=== PATIENT | male | born 1935 | race Caucasian/White ===

== ENCOUNTER 2017-03-15 09:16 | Observation (INO) | payer OTHER ==
[~2017-03-15] VITALS: Ht 157.5 cm; Wt 56.0 kg
[2017-03-15] VITALS (9 sets, daily range): BP systolic 138–204; BP diastolic 64–95; PULSE 54–89; RESP 15–21; TEMP 97.8–98.2; O2SAT 97–100
[~2017-03-15 09:16] MED LIST: ECOT81TA2 PO; METO25 PO
[2017-03-15] MEDS ORDERED: SODIUM CHLORIDE 0.9% FLUSH 10 ML FLUSH IVF PRN (09:45)
[2017-03-15 10:11] LABS: AUTOMATED NEUTROPHIL # 3.1 TH/MM3 (1.8-7.7); BASOPHIL # 0.1 TH/MM3 (0-0.2); BASOPHIL % 1.1 % (0.0-2.0); EOSINOPHIL # 0.2 TH/MM3 (0-0.4); EOSINOPHIL % 4.1 % (0.0-4.0); HEMATOCRIT 42.3 % (39.0-51.0); HEMO FLAGS DIFF FINAL; LYMPH % 16.3 % (9.0-44.0); LYMPHOCYTE # 0.7 TH/MM3 (1.0-4.8); MEAN CELL VOLUME 92.6 FL (80.0-100.0); MEAN CORPUSCULAR HEMOGLOBIN 30.3 PG (27.0-34.0); MEAN CORPUSCULAR HGB CONC 32.7 % (32.0-36.0); MONO % 10.2 % (0.0-8.0); NEUT % 68.3 % (16.0-70.0); PLATELET COUNT 138 TH/MM3 (150-450); RED BLOOD COUNT 4.56 MIL/MM3 (4.50-5.90); RED CELL DISTRIBUTION WIDTH 13.6 % (11.6-17.2); WHITE BLOOD COUNT 4.6 TH/MM3 (4.0-11.0)
--- NOTE | 2017-03-15 10:12 | RADRPT ---
EXAM DATE/TIME: 03/15/2017 09:48 [facility] COMPARISON: CHEST SINGLE AP, October 28, 2015, 15:29. INDICATIONS : Dizziness and chest pain. MEDICAL HISTORY : Hypercholesterolemia. Hypertension. Gastroesophageal reflux disease. SURGICAL HISTORY : CABG. ENCOUNTER: Initial ACUITY: 2 days PAIN SCORE: 3/10 LOCATION: Bilateral chest FINDINGS: A single view of the chest demonstrates the lungs to be symmetrically aerated without evidence of mas s, infiltrate or effusion. The cardiomediastinal contours are unremarkable. Osseous structures are intact with evidence of prior median sternotomy CABG.. CONCLUSION: No acute disease. Prior median sternotomy CABG Avery Cutler MD on March 15, 2017 at 10:10 Board Certified Radiologist. This report was verified electronically.
[2017-03-15] MEDS ORDERED: ASPI81CH CHEW (10:18)
[2017-03-15] MEDS ORDERED: METO50TA PO (10:18)
[2017-03-15 10:31] LABS: MAGNESIUM 2.4 MG/DL (1.5-2.5); POTASSIUM 5.8 MEQ/L (3.5-5.1)
--- NOTE | 2017-03-15 10:39 | PD ---
HPI . Weak and dizzy Chief Complaint: Dizziness Time Seen by Provider: 09:42 Travel History International Travel<30 days: No Contact w/Intl Traveler<30days: No Traveled to known affect area: No History of Present Illness HPI History is obtained from the patient and his . The majority of the history was from his . His symptoms started about 10 days ago when he spit up some blood. He has not spit up any more blood but has had persistent weakness and dizziness. His called the doctor at the onset of his symptoms and was instructed to bring him here for evaluation. She states that he initially refused. However, his symptoms have persisted and he finally agreed to come in today. He had the one episode of hemoptysis at the onset of his symptoms. Otherwise, there have been no modifying factors. He states that the weakness and dizziness is mild. His also reports persistent nasal congestion. That has been bothering him for months. He has used occasional Flonase with temporary relief of his symptoms. He also uses a NetiPot occasionally also with temporary relief of his symptoms. She states that the NetPot seems to help more than anything. She is concerned that the nasal congestion might be causing some of his weakness and dizziness. She reports that he has had previous surgery on his sinuses because of chronic sinusitis. PFSH Past Medical History Heart Rhythm Problems: Yes Cancer: Yes (SKIN) Cardiac Catheterization: Yes High Cholesterol: Yes Chest Pain: Yes Diminished Hearing: Yes (BIL[place]AL [place]) GERD: Yes Hypertension: Yes Immunizations Current: No Tetanus Vaccination: < 5 Years Influenza Vaccination: Yes Past Surgical History AICD: No Appendectomy: Yes Body Medical Devices: LOWER BACK INSTRUMENTATION Cardiac Surgery: No Coronary Artery Bypass Graft: Yes ( VESSELS ) Ear Surgery: No Endocrine Surgery: No Eye Surgery: No Genitourinary Surgery: No Gynecologic Surgery: No Joint Replacement: No Oral Surgery: No Social History Alcohol Use: Yes Tobacco Use: No (1975) Substance Use: No Allergies-Medications (Allergen,Severity, Reaction): Coded Allergies: No Known Allergies (Unverified , 03/15/17) Reported Meds & Prescriptions Reported Meds & Active Scripts Active Reported Aspirin 81 Mg Chew 81 Mg CHEW DAILY Metoprolol Tartrate 50 Mg Tab 50 Mg PO BID Review of Systems Except as stated in HPI: all other systems reviewed are Neg General / Constitutional: No: Fever, Chills Eyes: No: Blurred Vision HENT: Positive: Lightheadedness, Congestion, No: Vertigo Cardiovascular: No: Chest Pain or Discomfort Respiratory: No: Shortness of Breath Gastrointestinal: No: Nausea, Vomiting, Diarrhea Neurologic: Positive: Weakness, Dizziness, No: Syncope, Focal Abnormalities, Ataxia, Change in Mentation Physical Exam Narrative GENERAL: This is a very pleasant, elderly man who does not appear to be in any acute distress. SKIN: Warm and dry. HEAD: Atraumatic. Normocephalic. EYES: Pupils equal and round. Extraocular movements are intact. ENT: No nasal bleeding or discharge. Mucous membranes pink and moist. Oropharynx has no erythema. NECK: Trachea midline. Neck is supple. CARDIOVASCULAR: Regular rate and rhythm. Heart sounds are normal. RESPIRATORY: No accessory muscle use. Lungs are clear with full air movement throughout. GASTROINTESTINAL: Abdomen soft, non-tender, nondistended. MUSCULOSKELETAL: No obvious deformities. No edema. NEUROLOGICAL: Awake and alert. No obvious cranial nerve deficits. Motor grossly within normal limits. Normal speech. Normal iyoifr-iybp-xcejsl exam. PSYCHIATRIC: Appropriate mood and affect; insight and judgment normal. Data Data Last Documented VS Vital Signs Date Time Temp Pulse Resp B/P (MAP) Pulse Ox O2 Delivery O2 Flow Rate FiO2 03/15/17 10:15 63 15 156/74 (101) 100 Room Air 03/15/17 09:19 98.2 Orders Orders Electrocardiogram (03/15/17 09:42) Basic Metabolic Panel (Bmp) (03/15/17 09:42) Complete Blood Count With Diff (03/15/17 09:42) Magnesium (Mg) (03/15/17 09:42) Troponin I (03/15/17 09:42) Urinalysis - C+S If Indicated (03/15/17 09:42) Chest, Single Ap (03/15/17 09:42) Ct Brain W/O Iv Contrast(Rout) (03/15/17 09:42) Ecg Monitoring (03/15/17 09:42) Iv Access Insert/Monitor (03/15/17 09:42) Oximetry (03/15/17 09:42) Sodium Chloride 0.9% Flush (Ns Flush) (03/15/17 09:45) Orthostatic Vital Signs (03/15/17 09:42) Ct Sinuses W/O Iv Contrast (03/15/17 09:42) Sodium Polysty Sulfate Liq (Kayexalate L (03/15/17 11:00) Labs Laboratory Tests Test 03/15/17 09:55 White Blood Count 4.6 TH/MM3 Red Blood Count 4.56 MIL/MM3 Hemoglobin 13.8 GM/DL Hematocrit 42.3 % Mean Corpuscular Volume 92.6 FL Mean Corpuscular Hemoglobin 30.3 PG Mean Corpuscular Hemoglobin Concent 32.7 % Red Cell Distribution Width 13.6 % Platelet Count 138 TH/MM3 Mean Platelet Volume 9.5 FL Neutrophils (%) (Auto) 68.3 % Lymphocytes (%) (Auto) 16.3 % Monocytes (%) (Auto) 10.2 % Eosinophils (%) (Auto) 4.1 % Basophils (%) (Auto) 1.1 % Neutrophils # (Auto) 3.1 TH/MM3 Lymphocytes # (Auto) 0.7 TH/MM3 Monocytes # (Auto) 0.5 TH/MM3 Eosinophils # (Auto) 0.2 TH/MM3 Basophils # (Auto) 0.1 TH/MM3 CBC Comment DIFF FINAL Differential Comment Blood Urea Nitrogen 18 MG/DL Creatinine 1.44 MG/DL Random Glucose 175 MG/DL Calcium Level 9.0 MG/DL Magnesium Level 2.4 MG/DL Sodium Level 138 MEQ/L Potassium Level 5.8 MEQ/L Chloride Level 104 MEQ/L Carbon Dioxide Level 26.0 MEQ/L Anion Gap 8 MEQ/L Estimat Glomerular Filtration Rate 47 ML/MIN Troponin I 0.04 NG/ML MDM Medical Decision Making Medical Screen Exam Complete: Yes Emergency Medical Condition: Yes Medical Record Reviewed: Yes (past medical history is significant for hypertension, coronary artery disease status post CABG, hyperlipidemia tobacco abuse) Interpretation(s) EKG shows a normal sinus rhythm. No ST segment elevation or depression. No peaked T waves. He does have Q waves inferiorly. Differential Diagnosis Differential diagnosis of dizziness includes but is not limited to vertigo, dehydration, acute blood loss, sepsis, ACS Narrative Course This patient presents with a chief complaint of weakness and dizziness. Orthostatics have been obtained and are negative. CBC & BMP Diagram 03/15/17 09:55 Calcium Level 9.0, Magnesium Level 2.4 This patient is on no supplemental potassium. It looks like his renal function has gradually worsened. The hyperkalemia is likely secondary to renal insufficiency. I have given him a dose of Kayexalate. Diagnosis Primary Impression: Weakness Additional Impressions: Dizziness Hyperkalemia, diminished renal excretion Chronic renal disease, stage 3, moderately decreased glomerular filtration rate (GFR) between 30-59 mL/min/1.73 square meter Admitting Information Admitting Physician Requests: Observation Condition: Stable Emerita Tobias MD Mar 15, 2017 10:38
--- NOTE | 2017-03-15 10:52 | RADRPT ---
EXAM DATE/TIME: 03/15/2017 10:25 [facility] COMPARISON: CT BRAIN W/O CONTRAST, October 28, 2015, 16:25. INDICATIONS : Dizziness. RADIATION DOSE: 56.35 CTDIvol (mGy) MEDICAL HISTORY : Hypertension. SURGICAL HISTORY : Appendectomy. ENCOUNTER: Initial ACUITY: 3 months PAIN SCALE: 0/10 LOCATION: cranial TECHNIQUE: Multiple contiguous axial images were obtained of the head. Using automated exposure control and adj ustment of the mA and/or kV according to patient size, radiation dose was kept as low as reasonably a chievable to obtain optimal diagnostic quality images. DICOM format image data is available electro nically for review and comparison. FINDINGS: CEREBRUM: Ventricles and sulci are prominent consistent with age appropriate atrophy.. No evidence of midline shift, mass lesion, hemorrhage or acute infarction. No extra-axial fluid collections are seen. Decre ased density noted in white matter and periventricular consistent with microvascular ischemic demyeli nization. POSTERIOR FOSSA: The cerebellum and brainstem are intact. The 4th ventricle is midline. The cerebellopontine angle i s unremarkable. EXTRACRANIAL: The visualized portion of the orbits is intact. Extensive calcifications in the internal carotid alisha shad in the siphon and vertebral arteries at the foramen SKULL: The calvaria is intact. No evidence of skull fracture. CONCLUSION: Stable CT brain scan. Extensive vascular calcifications in the internal carotid arteries and vertebra l arteries . Atrophy and microvascular deep white matter ischemic demyelinization Avery Cutler MD on March 15, 2017 at 10:48 Board Certified Radiologist. This report was verified electronically.
[2017-03-15] MEDS ORDERED: SODIUM POLYSTYRENE SULFONATE SUSP 15 GM/60 ML CUP PO ONE (11:00)
--- NOTE | 2017-03-15 11:30 | RADRPT ---
EXAM DATE/TIME: 03/15/2017 10:27 [facility] COMPARISON: No previous studies available for comparison. INDICATIONS : Head congestion for 7 months. Evaulate for sinusitis. RADIATION DOSE: 9.29 CTDIvol (mGy) MEDICAL HISTORY : Hypertension. SURGICAL HISTORY : Appendectomy. ENCOUNTER: Initial ACUITY: 7 - 11 months PAIN SCORE: 0/10 LOCATION: facial TECHNIQUE: Volumetric scanning of the paranasal sinuses was performed. Using automated exposure control and adj ustment of the mA and/or kV according to patient size, radiation dose was kept as low as reasonably a chievable to obtain optimal diagnostic quality images. DICOM format image data is available electro nically for review and comparison. FINDINGS: There has been extensive previous sinus surgery with uncinate resection bilaterally and ethmoid bulle ctomies. There is minimal mucosal thickening in the base of the left maxillary sinus. The sinuses are otherwise clear. There is no evidence of nasal cavity mass or obstruction. The frontal sinuses are n ot pneumatized. There is minimal pneumatization of the mastoids. The middle ear cavities are clear. T here are no destructive bony changes identified. CONCLUSION: Previous sinus surgery. No significant sinus disease. Rick Hendrix MD on March 15, 2017 at 11:27 Board Certified Radiologist. This report was verified electronically.
[2017-03-15 12:29] LABS: BLOOD, URINE TRACE (NEG); GLUCOSE,URINE NEG (NEG); KETONE, URINE NEG (NEG); NITRITE,URINE NEG (NEG); PH, URINE 6.5 (5.0-8.5); URINE COLOR LIGHT-YELLOW (YELLW/STRAW)
[2017-03-15 12:44] LABS: COMMENT (UR) CULT NOT INDICATED; CULTURE IF INDICATED CULT NOT INDICATED
--- NOTE | 2017-03-15 13:08 | HHI.HP ---
[facility] Karlo Jaime MD Admission Diagnosis hyperkalemia Diagnoses: (1) Dizziness (2) Weakness (3) Acute renal failure superimposed on stage 3 chronic kidney disease (4) Hypertension (5) Hyperkalemia, diminished renal excretion Chief Complaint: Dizziness and weakness Travel History International Travel<30 Days: No Contact w/Intl Traveler <30 Da: No Traveled to Known Affected Are: No History of Present Illness 81-year-old male with a history of hypertension, presented to the ED for evaluation of worsening symptoms of dizziness and weakness 10 days. Patient reported one episode of hemoptysis about 10 days ago however resolved. Does have a history of sinus surgery and complain of nasal injection for which he'll occasionally use Flonase and NetiPot with temporary relief of his symptoms. Overstated over the past few days he has been more weak and dizzy. Denies any shortness of breath or chest pain. Abnormal labs include potassium of 5.8, however patient is not on any diuretics. Reacting of 1.44 with a GFR of 47. Patient [facility]. He has no other issues including GI bleed. Review of Systems Except as stated in HPI: all other systems reviewed are Neg Past Family Social History Past Medical History Cancer: Yes (SKIN) Cardiac Catheterization: Yes High Cholesterol: Yes Chest Pain: Yes Diminished Hearing: Yes (BILATERAL [place]) GERD: Yes Hypertension: Yes Past Surgical History Appendectomy: Yes Body Medical Devices: LOWER BACK INSTRUMENTATION Coronary Artery Bypass Graft: Yes ( VESSELS ) Reported Medications Aspirin 81 Mg Chew 81 Mg CHEW DAILY Metoprolol Tartrate 50 Mg Tab 50 Mg PO BID Allergies: Coded Allergies: No Known Allergies (Unverified , 03/15/17) Family History Positive for diabetes Social History Alcohol Use: Yes Tobacco Use: No (1976) Substance Use: No Physical Exam Vital Signs Vital Signs Date Time Temp Pulse Resp B/P (MAP) Pulse Ox O2 Delivery O2 Flow Rate FiO2 03/15/17 12:00 57 21 157/75 (102) 99 Room Air 03/15/17 11:00 54 15 156/74 (101) 98 Room Air 03/15/17 10:15 63 15 156/74 (101) 100 Room Air 03/15/17 10:15 Room Air 03/15/17 10:11 62 156/74 (101) 03/15/17 10:09 56 138/65 (89) 03/15/17 10:07 53 140/64 (89) 03/15/17 09:19 98.2 89 16 204/95 (131) 98 Physical Exam GENERAL: This is a well-nourished, well-developed patient, in no apparent distress. SKIN: No rashes, ecchymoses or lesions. Cool and dry. HEAD: Atraumatic. Normocephalic. No temporal or scalp tenderness. EYES: Pupils equal round and reactive. Extraocular motions intact. No scleral icterus. No injection or drainage. ENT: Nose without bleeding, purulent drainage or septal hematoma. Throat without erythema, tonsillar hypertrophy or exudate. Uvula midline. Airway patent. NECK: Trachea midline. No JVD or lymphadenopathy. Supple, nontender, no meningeal signs. CARDIOVASCULAR: Regular rate and rhythm without murmurs, gallops, or rubs. RESPIRATORY: Clear to auscultation. Breath sounds equal bilaterally. No wheezes , rales, or rhonchi. GASTROINTESTINAL: Abdomen soft, non-tender, nondistended. No hepato-splenomegaly , or palpable masses. No guarding. MUSCULOSKELETAL: Extremities without clubbing, cyanosis, or edema. No joint tenderness, effusion, or edema noted. No calf tenderness. Negative Homans sign bilaterally. NEUROLOGICAL: Awake and alert. Cranial nerves II through XII intact. Motor and sensory grossly within normal limits. Five out of 5 muscle strength in all muscle groups. Normal speech. Laboratory Laboratory Tests Test 03/15/17 09:55 03/15/17 12:15 White Blood Count 4.6 Red Blood Count 4.56 Hemoglobin 13.8 Hematocrit 42.3 Mean Corpuscular Volume 92.6 Mean Corpuscular Hemoglobin 30.3 Mean Corpuscular Hemoglobin Concent 32.7 Red Cell Distribution Width 13.6 Platelet Count 138 Mean Platelet Volume 9.5 Neutrophils (%) (Auto) 68.3 Lymphocytes (%) (Auto) 16.3 Monocytes (%) (Auto) 10.2 Eosinophils (%) (Auto) 4.1 Basophils (%) (Auto) 1.1 Neutrophils # (Auto) 3.1 Lymphocytes # (Auto) 0.7 Monocytes # (Auto) 0.5 Eosinophils # (Auto) 0.2 Basophils # (Auto) 0.1 CBC Comment DIFF FINAL Differential Comment Blood Urea Nitrogen 18 Creatinine 1.44 Random Glucose 175 Calcium Level 9.0 Magnesium Level 2.4 Sodium Level 138 Potassium Level 5.8 Chloride Level 104 Carbon Dioxide Level 26.0 Anion Gap 8 Estimat Glomerular Filtration Rate 47 Troponin I 0.04 Urine Color LIGHT-YELLOW Urine Turbidity CLEAR Urine pH 6.5 Urine Specific Mauldin 1.005 Urine Protein NEG Urine Glucose (UA) NEG Urine Ketones NEG Urine Occult Blood TRACE Urine Nitrite NEG Urine Bilirubin NEG Urine Urobilinogen LESS THAN 2.0 Urine Leukocyte Esterase NEG Urine RBC 1 Urine WBC LESS THAN 1 Microscopic Urinalysis Comment CULT NOT INDICATED Result Diagram: 03/15/1795403/15/17954 Imaging Last Impressions Sinuses CT 03/15/17941 Signed Impressions: Service Date/Time: Wednesday, March 15, 2017 10:27 - CONCLUSION: Previous sinus surgery. No significant sinus disease. Rick Hendrix MD Head CT 03/15/17941 Signed Impressions: Service Date/Time: Wednesday, March 15, 2017 10:25 - CONCLUSION: Stable CT brain scan. Extensive vascular calcifications in the internal carotid arteries and vertebral arteries . Atrophy and microvascular deep white matter ischemic demyelinization Avery Cutler MD Chest X-Ray 03/15/17941 Signed Impressions: Service Date/Time: Wednesday, March 15, 2017 09:48 - CONCLUSION: No acute disease. Prior median sternotomy CABG Avery Cutler MD Capkristopheri VTE Risk Assessment Caprini VTE Risk Assessment: Mod/High Risk (score >= 2) Caprini Risk Assessment Model Point Value = 1 Point Value = 2 Point Value = 3 Point Value = 5 Age 41-60 Minor surgery BMI > 25 kg/m2 Swollen legs Varicose veins or History of unexplained or recurrent spontaneous Oral contraceptives or hormone replacement Sepsis (< 1 month) Serious lung disease, including pneumonia (< 1 month) Abnormal pulmonary function Acute myocardial infarction Congestive heart failure (< 1 month) History of inflammatory bowel disease Medical patient at bed rest Age 61-74 Arthroscopic surgery Major open surgery (> 45 min) Laparoscopic surgery (> 45 min) Malignancy Confined to bed (> 72 hours) Immobilizing plaster cast Central venous access Age >= 75 History of VTE Family history of VTE Factor V Leiden Prothrombin [id number] Lupus anticoagulant Anticardiolipin antibodies Elevated serum homocysteine Heparin-induced thrombocytopenia Other congenital or acquired thrombophilia Stroke (< 1 month) Elective arthroplasty Hip, pelvis, or leg fracture Acute spinal cord injury (< 1 month) Prophylaxis Regimen Total Risk Factor Score Risk Level Prophylaxis Regimen 0-1 Low Early ambulation 2 Moderate Order ONE of the following: *Sequential Compression Device (SCD) *Heparin 5000 units SQ BID 3-4 Higher Order ONE of the following medications: *Heparin 5000 units SQ TID *Enoxaparin/Lovenox 40 mg SQ daily (WT < 150 kg, CrCl > 30 mL/min) *Enoxaparin/Lovenox 30 mg SQ daily (WT < 150 kg, CrCl > 10-29 mL/min) *Enoxaparin/Lovenox 30 mg SQ BID (WT < 150 kg, CrCl > 30 mL/min) AND/OR *Sequential Compression Device (SCD) 5 or more Highest Order ONE of the following medications: *Heparin 5000 units SQ TID (Preferred with Epidurals) *Enoxaparin/Lovenox 40 mg SQ daily (WT < 150 kg, CrCl > 30 mL/min) *Enoxaparin/Lovenox 30 mg SQ daily (WT < 150 kg, CrCl > 10-29 mL/min) *Enoxaparin/Lovenox 30 mg SQ BID (WT < 150 kg, CrCl > 30 mL/min) AND *Sequential Compression Device (SCD) Assessment and Plan Problem List: (1) Acute renal failure superimposed on stage 3 chronic kidney disease ICD Code: N17.9 - Acute kidney failure, unspecified; N18.3 - Chronic kidney disease, stage 3 (moderate) Status: Acute (2) Dizziness ICD Code: R42 - Dizziness and giddiness Status: Resolved (3) Weakness ICD Code: R53.1 - Weakness Status: Resolved (4) Hyperkalemia, diminished renal excretion ICD Code: E87.5 - Hyperkalemia Status: Resolved (5) Hypertension ICD Code: I10 - Hypertension Status: Acute Assessment and Plan 82-year-old man with Dizziness and generalized weakness Head CT noted and review by me without any acute finding Sinus CT noted and reviewed by me with no current sinus disease Chest x-ray noted and review by me without any cardiopulmonary disease Consult PT to treat and eval Hyperkalemia Treat With Kayexalate 1 now and repeat potassium at 4 PM Monitor electrolyte Acute on chronic kidney disease stage III Likely secondary to dehydration Gentle IV fluid hydration and monitor BUN and creatinine Avoid all nephrotoxic drugs Impaired fasting glucose No known history of diabetes type 2, check hemoglobin A1c and treat accordingly Hypertension Resume Lopressor DVT prophylaxis: Bilateral SCDs Code Status Full code Discussed Condition With Patient, ED physician Problem Qualifiers (1) Acute renal failure superimposed on stage 3 chronic kidney disease: Qualified Codes: N17.9 - Acute kidney failure, unspecified; N18.3 - Chronic kidney disease, stage 3 (moderate) (2) Hypertension: Qualified Codes: I10 - Essential (primary) hypertension Nilo Mendoza MD Mar 15, 2017 13:08
[2017-03-15] MEDS ORDERED: NALOXONE HCL 0.4 MG/ML AMP IV PRN (13:15)
[2017-03-15] MEDS ORDERED: SODIUM CHLORIDE 0.9% FLUSH 10 ML FLUSH IV FLUSH PRN (13:15)
[2017-03-15] MEDS ORDERED: ACETAMINOPHEN 325 MG TAB PO PRN ×2 (13:15)
[2017-03-15] MEDS ORDERED: TEMAZEPAM 15 MG CAP PO PRN (13:15)
[2017-03-15] MEDS ORDERED: ONDANSETRON HCL 4 MG/2 ML VIAL IVP PRN (13:15)
[2017-03-15] MEDS: SODIUM CHLOR 0.9% 1000 ML INJ 1,000 ML IV SCH ×2 (14:16→21:02)
[2017-03-15] MEDS ORDERED: METOPROLOL TARTRATE 50 MG TAB PO SCH (21:00)
[2017-03-15] MEDS: SODIUM CHLORIDE 0.9% FLUSH 10 ML FLUSH IV FLUSH SCH (21:00)
[2017-03-15] MEDS ORDERED: cloNIDine HCL 0.2 MG TAB PO PRN (22:45)
[2017-03-16 01:04] VITALS: BP 87/49; PULSE 57; RESP 18; TEMP 98.4; O2SAT 97
[2017-03-16 02:30] VITALS: PULSE 62
[2017-03-16 03:37] VITALS: BP 94/55; PULSE 53; RESP 18; TEMP 98; O2SAT 97
[2017-03-16 03:59] VITALS: BP 93/49; PULSE 66
[2017-03-16] MEDS ORDERED: PILL SPLITTER OTHER PRN (07:15)
[2017-03-16 07:48] VITALS: BP 130/67; PULSE 52; RESP 21; TEMP 97.4; O2SAT 96
--- NOTE | 2017-03-16 08:37 | HHI.PR ---
Subjective Remarks Follow up for weakness. The patient states he came to the hospital because he had been having upset stomach. He denies any vomiting or diarrhea, but states even having some abdominal bloating and nausea. He denies any of those abdominal symptoms today. He has been ambulating here with no issues. He denies any lightheadedness, dizziness, or weakness. He denies any pain. He is hoping to go home today same. He lives with his . BP was labile overnight. The patient states his doctor recently increased his blood pressure medication 2 months ago that he was stable on for 2 years. Objective Vitals Vital Signs Date Time Temp Pulse Resp B/P (MAP) Pulse Ox O2 Delivery O2 Flow Rate FiO2 03/16/17 07:48 97.4 52 21 130/67 (88) 96 03/16/17 03:59 66 93/49 (64) Automatic Cuff 03/16/17 03:37 98.0 53 18 94/55 (68) 97 03/16/17 02:30 62 Automatic Cuff 03/16/17 01:04 98.4 57 18 87/49 (62) 97 03/15/17 21:50 98.0 68 18 181/83 (115) 98 03/15/17 16:04 97.8 62 18 187/88 (121) 97 03/15/17 14:13 97 03/15/17 12:00 57 21 157/75 (102) 99 Room Air 03/15/17 11:00 54 15 156/74 (101) 98 Room Air 03/15/17 10:15 63 15 156/74 (101) 100 Room Air 03/15/17 10:15 Room Air 03/15/17 10:11 62 156/74 (101) 03/15/17 10:09 56 138/65 (89) 03/15/17 10:07 53 140/64 (89) 03/15/17 09:19 98.2 89 16 204/95 (131) 98 I/O 03/15/17 03/15/17 03/15/17 03/16/17 03/16/17 03/16/17 07:00 15:00 23:00 07:00 15:00 23:00 # Voids 2 # Bowel Movements 1 Result Diagram: 03/15/[id number]/172054 Imaging Last Impressions Sinuses CT 03/15/17941 Signed Impressions: Service Date/Time: Wednesday, March 15, 2017 10:27 - CONCLUSION: Previous sinus surgery. No significant sinus disease. Rick Hendrix MD Head CT 03/15/17941 Signed Impressions: Service Date/Time: Wednesday, March 15, 2017 10:25 - CONCLUSION: Stable CT brain scan. Extensive vascular calcifications in the internal carotid arteries and vertebral arteries . Atrophy and microvascular deep white matter ischemic demyelinization Avery Cutler MD Chest X-Ray 03/15/17941 Signed Impressions: Service Date/Time: Wednesday, March 15, 2017 09:48 - CONCLUSION: No acute disease. Prior median sternotomy CABG Avery Cutler MD Objective Remarks GENERAL: Well-developed well-nourished. In no acute distress. SKIN: Warm and dry. No lesions noted. HEENT: Normocephalic. Pupils equal and round. Mucous membranes pink and moist. CARDIOVASCULAR: Regular rate and rhythm. No murmur appreciated. RESPIRATORY: No accessory muscle use. Clear to auscultation. Breath sounds equal bilaterally. GASTROINTESTINAL: Abdomen soft, non-tender, nondistended. Bowel sounds x4. MUSCULOSKELETAL: No obvious deformities. No clubbing or cyanosis. No edema. NEUROLOGICAL: Awake and alert. No focal neurological deficits. Moves upper and lower extremities spontaneously. Normal speech. PSYCHIATRIC: Appropriate mood and affect; insight and judgment fair to normal. A/P Problem List: (1) Dizziness ICD Code: R42 - Dizziness and giddiness Status: Resolved (2) Weakness ICD Code: R53.1 - Weakness Status: Resolved (3) Acute renal failure superimposed on stage 3 chronic kidney disease ICD Code: N17.9 - Acute kidney failure, unspecified; N18.3 - Chronic kidney disease, stage 3 (moderate) Status: Acute (4) Hypertension ICD Code: I10 - Hypertension Status: Acute (5) Hyperkalemia, diminished renal excretion ICD Code: E87.5 - Hyperkalemia Status: Resolved Assessment and Plan 82-year-old man with Dizziness and generalized weakness: Mild. Symptoms improved. Possibly due to BP. Reviewed: Head CT without any acute finding. Sinus CT with no current sinus disease. Chest x-ray without any cardiopulmonary disease. Last was signs of dehydration. BP labile. Consulted PT, recommends no restrictions IVF Control BP Hyperkalemia: Potassium 5.8, given Kayexalate 1, repeat potassium 3.9. Follow-up BMP Acute on chronic kidney disease stage III: Creatinine 1.44, previously 1.21 in October 2015. Likely secondary to dehydration Gentle IV fluid hydration and monitor BUN and creatinine Avoid all nephrotoxic drugs Impaired fasting glucose No known history of diabetes type 2, check hemoglobin A1c and treat accordingly Hypertension: BP accelerated upon admission and hypotensive overnight. Recent increase in metoprolol. Decrease metoprolol and add hold parameters Check orthostatics DVT prophylaxis: Bilateral SCDs Discharge Planning Follow-up renal function and BP. Likely discharge planning later today. 1200 blood pressure is better on decreased dose of metoprolol. Renal function improved to baseline overnight. Patient is clinically improved overnight. Discharge home for outpatient follow-up with PCP with decreased dose of metoprolol. Problem Qualifiers (1) Acute renal failure superimposed on stage 3 chronic kidney disease: Qualified Codes: N17.9 - Acute kidney failure, unspecified; N18.3 - Chronic kidney disease, stage 3 (moderate) (2) Hypertension: Qualified Codes: I10 - Essential (primary) hypertension Corey Pitts Mar 16, 2017 08:37
[2017-03-16] MEDS ORDERED: METOPROLOL TARTRATE 25 MG TAB PO SCH (09:00)
[2017-03-16] MEDS ORDERED: ASPIRIN 81 MG CHEW TAB CHEW SCH (09:00)
[2017-03-16] MEDS: SODIUM CHLORIDE 0.9% FLUSH 10 ML FLUSH IV FLUSH SCH (09:19)
[2017-03-16] MEDS: SODIUM CHLOR 0.9% 1000 ML INJ 1,000 ML IV SCH (09:22)
[2017-03-16 09:47] LABS: AUTOMATED NEUTROPHIL # 2.2 TH/MM3 (1.8-7.7); BASOPHIL # 0.1 TH/MM3 (0-0.2); BASOPHIL % 1.7 % (0.0-2.0); EOSINOPHIL # 0.2 TH/MM3 (0-0.4); EOSINOPHIL % 5.2 % (0.0-4.0); HEMATOCRIT 40.2 % (39.0-51.0); HEMO FLAGS DIFF FINAL; LYMPH % 25.7 % (9.0-44.0); MEAN CELL VOLUME 91.2 FL (80.0-100.0); MEAN CORPUSCULAR HEMOGLOBIN 31.2 PG (27.0-34.0); MEAN CORPUSCULAR HGB CONC 34.2 % (32.0-36.0); MONO % 11.8 % (0.0-8.0); NEUT % 55.6 % (16.0-70.0); PLATELET COUNT 131 TH/MM3 (150-450); RED BLOOD COUNT 4.41 MIL/MM3 (4.50-5.90); RED CELL DISTRIBUTION WIDTH 13.6 % (11.6-17.2); WHITE BLOOD COUNT 3.9 TH/MM3 (4.0-11.0)
[2017-03-16 10:22] LABS: ALKALINE PHOSPHATASE 116 U/L (45-117); ALT (GPT) 59 U/L (12-78); ANION GAP 6 MEQ/L (5-15); AST (GOT) 36 U/L (15-37); BICARBONATE 27.3 MEQ/L (21.0-32.0); BLOOD UREA NITROGEN 18 MG/DL (7-18); CHLORIDE 105 MEQ/L (98-107); GLOMERULAR FILTRATION RATE 56 ML/MIN (>89); POTASSIUM 3.7 MEQ/L (3.5-5.1); SODIUM (NA) 138 MEQ/L (136-145); TOTAL BILIRUBIN ADULT 0.8 MG/DL (0.2-1.0)
[2017-03-16 11:19] LABS: HEMOGLOBIN A1a 1.3 %; HEMOGLOBIN A1b 1.6 %; HEMOGLOBIN Ao 84.7 %; HEMOGLOBIN LA1C 1.9 %; HEMOGLOBIN P3 4.1 %
[2017-03-16 11:38] VITALS: BP_SYST 108; BP_SYST 123; BP_DIAS 52; BP_DIAS 57; BP_DIAS 58; PULSE 61; RESP 19; TEMP 97.5; O2SAT 98
[2017-03-16] MEDS ORDERED: METO25TA3 PO (11:52)
[2017-03-16] MEDS ORDERED: SIME1CAP17 PO (11:52)
--- NOTE | 2017-03-16 17:05 | EKG ---
Date Performed: 03/15/2017 Time Performed: 09:58:12 PTAGE: 81 years EKG: SINUS BRADYCARDIA POSSIBLE INFERIOR MYOCARDIAL INFARCTION Since previous tracing, no signif icant change noted ABNORMAL ECG PREVIOUS TRACING : 10/28/2015 15.15 DOCTOR: Beverly Fleming Interpretating Date/Time 03/16/2017 17:02:16
== END 2017-03-16 13:31 | disposition home or self-care (01) ==
LOC: NEPC 09:16 → NEDA 12:50 → NEPFCDU 14:24
PROVIDERS: ADMIT Family Medicine; ATTEND Family Medicine
DX: E87.5 Hyperkalemia (principal); N17.9 Acute kidney failure, unspecified; N18.3 Chronic kidney disease, stage 3 (moderate); R07.9 Chest pain, unspecified; I13.0 Hypertensive heart and chronic kidney disease with heart failure and stage 1 through stage 4 chronic kidney disease, or unspecified chronic kidney disease; E78.00 Pure hypercholesterolemia, unspecified; K21.9 Gastro-esophageal reflux disease without esophagitis
CPT/HCPCS: 70450; 70486; 71010; 80048; 80053; 81001; 83036; 83735; 84132; 84484; 85025; 93005; 96360; 96361; 97162; 99285; G0378; G8987; G8988; J7030

== ENCOUNTER 2017-09-26 13:01 | Emergency (ER) | payer OTHER ==
[~2017-09-26 13:01] MED LIST changes: +ASPI-516 CHEW; -ECOT81TA2 PO; -METO25 PO; +METO25TA3 PO; +SIME1CAP17 PO
[2017-09-26 13:25] VITALS: BP 162/120; PULSE 73; RESP 18; TEMP 97.6; O2SAT 99
[2017-09-26 14:22] LABS: BASOPHIL # 0.1 TH/MM3 (0-0.2); BASOPHIL % 0.8 % (0.0-2.0); EOSINOPHIL # 0.1 TH/MM3 (0-0.4); EOSINOPHIL % 0.8 % (0.0-4.0); HEMATOCRIT 43.1 % (39.0-51.0); LYMPH % 9.5 % (9.0-44.0); LYMPHOCYTE # 0.7 TH/MM3 (1.0-4.8); MEAN CELL VOLUME 89.3 FL (80.0-100.0); MEAN CORPUSCULAR HEMOGLOBIN 31.1 PG (27.0-34.0); MEAN CORPUSCULAR HGB CONC 34.8 % (32.0-36.0); MEAN PLATELET VOLUME 9.7 FL (7.0-11.0); MONO % 7.8 % (0.0-8.0); MONOCYTE # 0.6 TH/MM3 (0-0.9); NEUT % 81.1 % (16.0-70.0); PLATELET COUNT 157 TH/MM3 (150-450); RED BLOOD COUNT 4.82 MIL/MM3 (4.50-5.90); RED CELL DISTRIBUTION WIDTH 13.5 % (11.6-17.2); WHITE BLOOD COUNT 7.4 TH/MM3 (4.0-11.0)
[2017-09-26 14:30] LABS: INTERNATIONAL NORMALIZED RATIO 1.1 RATIO; PROTHROMBIN TIME - PATIENT 11.1 SEC (9.8-11.6)
[2017-09-26 14:49] LABS: ALBUMIN 4.3 GM/DL (3.4-5.0); AST (GOT) 32 U/L (15-37); BICARBONATE 22.4 MEQ/L (21.0-32.0); BLOOD UREA NITROGEN 25 MG/DL (7-18); CALCIUM 9.9 MG/DL (8.5-10.1); CHLORIDE 99 MEQ/L (98-107); CREATININE 1.38 MG/DL (0.60-1.30); GLOMERULAR FILTRATION RATE 49 ML/MIN (>89); GLUCOSE,RANDOM 119 MG/DL (74-106); SODIUM (NA) 132 MEQ/L (136-145)
[2017-09-26 14:51] LABS: ALT (GPT) 36 U/L (12-78)
[2017-09-26 14:53] LABS: ALKALINE PHOSPHATASE 118 U/L (45-117); TOTAL BILIRUBIN ADULT 1.3 MG/DL (0.2-1.0)
--- NOTE | 2017-09-26 17:12 | PD ---
HPI Chief Complaint: GI Complaint Time Seen by Provider: 16:42 Travel History International Travel<30 days: No Contact w/Intl Traveler<30days: No Traveled to known affect area: No History of Present Illness HPI 81-year-old male presents to the emergency room with his for evaluation of constipation. His last bowel movement was yesterday at 5:00 PM. Patient has history of dementia and his provides much of the history. She states while at the [facility] today he complained that he was having pain with defecation. When they went home she tried to administer an enema but was unable to because the patient reported significant rectal pain. She brought him to the emergency room and while waiting he was able to have a bowel movement. Patient's states it was foul-smelling and loose. He has had no other diarrhea or difficulty with bowel movements. He took antibiotics for 5 days status post skin cancer removal on the face. He has not been taking any pain medication. Patient denies any abdominal pain, dysuria, urgency, frequency, nausea, vomiting , or fevers. He does have history of hemorrhoids that have had been ligated. PFSH Past Medical History Heart Rhythm Problems: Yes (VIKAS) Cancer: Yes (SKIN) Cardiac Catheterization: Yes Cardiovascular Problems: Yes High Cholesterol: Yes Chest Pain: Yes Diminished Hearing: Yes ([place]) Gastrointestinal Disorders: Yes GERD: Yes Hypertension: Yes Immune Disorder: No Implanted Vascular Access Dvce: Yes Respiratory: Yes (CHRONIC SINUSITIS) Immunizations Current: No Past Surgical History Abdominal Surgery: Yes AICD: No Appendectomy: Yes Body Medical Devices: LOWER BACK INSTRUMENTATION Cardiac Surgery: No Coronary Artery Bypass Graft: Yes ( VESSELS ) Ear Surgery: No Endocrine Surgery: No Eye Surgery: No Genitourinary Surgery: No Gynecologic Surgery: No Joint Replacement: No Oral Surgery: No Other Surgery: Yes (CABG, APPENDECTOMY) Social History Alcohol Use: Yes Tobacco Use: No (1975) Substance Use: No Allergies-Medications (Allergen,Severity, Reaction): Coded Allergies: No Known Allergies (Unverified , 03/15/17) Reported Meds & Prescriptions Reported Meds & Active Scripts Active Simethicone 125 Mg Cap 125 Mg PO QID PRN Metoprolol Tartrate 25 Mg Tab 12.5 Mg PO BID Reported Aspirin 81 Mg Chew 81 Mg CHEW DAILY Review of Systems Except as stated in HPI: all other systems reviewed are Neg Physical Exam Narrative GENERAL: Well-nourished, well-developed male in no acute distress. Afebrile. Ambulatory. SKIN: Focused skin assessment warm/dry. HEAD: Normocephalic. EYES: No scleral icterus. No injection or drainage. EARS: Bilateral pinnae and external canals appear within normal limits. Right- sided cerumen impaction. NECK: Supple, trachea midline. No JVD or lymphadenopathy. CARDIOVASCULAR: Regular rate and rhythm without murmurs, gallops, or rubs. RESPIRATORY: Breath sounds equal bilaterally. No accessory muscle use. GASTROINTESTINAL: Abdomen soft, non-tender, nondistended. RECTAL EXAM: Examined in the presence of the nurse. Stool is brown. No bright red blood. Patient has extreme tenderness to palpation of the anus especially internally at the 12 o'clock position. There are several external hemorrhoids. No induration or erythema. Data Data Last Documented VS Vital Signs Date Time Temp Pulse Resp B/P (MAP) Pulse Ox O2 Delivery O2 Flow Rate FiO2 09/26/17 13:25 97.6 73 18 162/120 (134) 99 Orders Orders Complete Blood Count With Diff (09/26/17 13:29) Comprehensive Metabolic Panel (09/26/17 13:29) Lipase (09/26/17 13:29) Prothrombin Time / Inr (Pt) (09/26/17 13:29) Act Partial Throm Time (Ptt) (09/26/17 13:29) Sodium Chlor 0.9% 1000 Ml Inj (Ns 1000 M (09/26/17 18:00) Ed Discharge Order (09/26/17 18:32) Labs Laboratory Tests Test 09/26/17 14:05 White Blood Count 7.4 TH/MM3 Red Blood Count 4.82 MIL/MM3 Hemoglobin 15.0 GM/DL Hematocrit 43.1 % Mean Corpuscular Volume 89.3 FL Mean Corpuscular Hemoglobin 31.1 PG Mean Corpuscular Hemoglobin Concent 34.8 % Red Cell Distribution Width 13.5 % Platelet Count 157 TH/MM3 Mean Platelet Volume 9.7 FL Neutrophils (%) (Auto) 81.1 % Lymphocytes (%) (Auto) 9.5 % Monocytes (%) (Auto) 7.8 % Eosinophils (%) (Auto) 0.8 % Basophils (%) (Auto) 0.8 % Neutrophils # (Auto) 6.0 TH/MM3 Lymphocytes # (Auto) 0.7 TH/MM3 Monocytes # (Auto) 0.6 TH/MM3 Eosinophils # (Auto) 0.1 TH/MM3 Basophils # (Auto) 0.1 TH/MM3 CBC Comment DIFF FINAL Differential Comment Prothrombin Time 11.1 SEC Prothromb Time International Ratio 1.1 RATIO Activated Partial Thromboplast Time 25.8 SEC Blood Urea Nitrogen 25 MG/DL Creatinine 1.38 MG/DL Random Glucose 119 MG/DL Total Protein 8.0 GM/DL Albumin 4.3 GM/DL Calcium Level 9.9 MG/DL Alkaline Phosphatase 118 U/L Aspartate Amino Transf (AST/SGOT) 32 U/L Alanine Aminotransferase (ALT/SGPT) 36 U/L Total Bilirubin 1.3 MG/DL Sodium Level 132 MEQ/L Potassium Level 4.4 MEQ/L Chloride Level 99 MEQ/L Carbon Dioxide Level 22.4 MEQ/L Anion Gap 11 MEQ/L Estimat Glomerular Filtration Rate 49 ML/MIN Lipase 127 U/L MDM Medical Decision Making Medical Screen Exam Complete: Yes Emergency Medical Condition: Yes Medical Record Reviewed: Yes Differential Diagnosis Acute on chronic renal failure, C. difficile unlikely, constipation, hemorrhoids Narrative Course 81-year-old male with history of chronic kidney disease presents to the emergency room with his for evaluation of painful defecation that started earlier today. Patient last had a bowel movement yesterday that was normal. States he tried to have a bowel movement today and he felt constipated so his tried to administer an enema but it was too painful. While in the waiting room, patient had a loose bowel movement. He has not had any diarrhea. No associated abdominal pain, nausea, or vomiting. No fevers. Abdomen soft, nontender. Vital signs stable. Patient is ambulatory without difficulty. Physical exam reveals extreme tenderness to palpation of several hemorrhoids in the rectum especially at the 12 o'clock position and around the anus. There is no blood. Stool is brown. No fecal impaction. CBC is completely unremarkable. CMP is only remarkable for elevated BUN and creatinine. Patient was given 1 L of fluids. His is also requesting cerumen disimpaction which was performed with ear irrigation. Patient states "I feel 100% better." No indication for imaging at this time. He is stable for outpatient follow-up. He and his understand and agree to plan. Diagnosis Primary Impression: Hemorrhoids Qualified Codes: K64.9 - Unspecified hemorrhoids Referrals: [facility] Additional Instructions: Use [id number] Preparation H for pain. 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 Return to the emergency room for worsening symptoms. Disposition: 01 DISCHARGE HOME Condition: Stable Charissa Valverde Sep 26, 2017 17:12
[2017-09-26] MEDS ORDERED: SODIUM CHLOR 0.9% 1000 ML INJ 1,000 ML IV ONE (18:00)
[2017-09-26 19:00] VITALS: BP 148/71; PULSE 72; RESP 17; O2SAT 100
== END 2017-09-26 19:20 | disposition home or self-care (01) ==
LOC: NEPD 13:01
DX: K64.9 Unspecified hemorrhoids (principal); F03.90 Unspecified dementia, unspecified severity, without behavioral disturbance, psychotic disturbance, mood disturbance, and anxiety; E78.00 Pure hypercholesterolemia, unspecified; I12.9 Hypertensive chronic kidney disease with stage 1 through stage 4 chronic kidney disease, or unspecified chronic kidney disease; N18.9 Chronic kidney disease, unspecified; K21.9 Gastro-esophageal reflux disease without esophagitis; Z95.1 Presence of aortocoronary bypass graft; Z85.828 Personal history of other malignant neoplasm of skin
CPT/HCPCS: 80053; 83690; 85025; 85610; 85730; 99283; J7030